=== PATIENT | male | born 1960 | race Two or more races ===

== ENCOUNTER 2022-01-20 08:43 | Emergency (ER) | payer MEDICAID, OTHER ==
[~2022-01-20] VITALS: Ht 172.7 cm; Wt 84.8 kg
[2022-01-20 09:44] LABS: Basophils # (auto) 0 10 ^3/uL (0-0.2); Basophils % (auto) 0.7 % (0.0-2.0); Eosinophils # (auto) 0.3 10 ^3/uL (0-0.8); Eosinophils % (auto) 4.2 % (0.0-7.0); Hematocrit 43.4 % (41.0-53.0); Hemoglobin 14.5 g/dL (13.5-17.5); Lymphocytes # (auto) 1.1 10 ^3/uL (0.4-5.4); Lymphocytes % (auto) 18.4 % (10.0-50.0); Mean Corpuscular Hemoglobin 30.3 pg (28.0-32.0); Mean Corpuscular Hgb Conc. 33.4 g/dL (32.0-36.0); Mean Corpuscular Volume 90.9 fL (80.0-100.0); Monocytes # (auto) 0.4 10 ^3/uL (0-1.3); Monocytes % (auto) 6.8 % (0.0-12.0); Neutrophils # (auto) 4.2 10 ^3/uL (1.6-8.6); Neutrophils % (auto) 69.9 % (37.0-80.0); Nucleated Red Blood Cells % 0.1 %; Red Blood Cells 4.78 10^6/uL (4.5-5.90); Red Cell Distribution Width 15.6 % (11.8-14.3)
[2022-01-20 09:55] LABS: Albumin 3.2 g/dL (3.4-5.0); Calcium 8.7 mg/dL (8.5-10.1); Potassium 3.4 mmol/L (3.5-5.1)
[2022-01-20 09:56] LABS: INR 1.09 (0.9-1.15); Partial Thromboplastin Time 26.2 sec (23.6-33.0)
[2022-01-20 09:58] LABS: BUN/Creatinine Ratio 8.2; Bilirubin, Total 0.6 mg/dL (0.2-1.0); Total Protein 7.5 g/dL (6.4-8.2)
[2022-01-20 11:00] VITALS: BP 122/88
== END 2022-01-20 11:36 | disposition home or self-care (01) ==
LOC: EDBD 08:43 → ER 08:43
DX: T84.210A Breakdown (mechanical) of internal fixation device of bones of hand and fingers, initial encounter (principal); I12.0 Hypertensive chronic kidney disease with stage 5 chronic kidney disease or end stage renal disease; N18.6 End stage renal disease; Z87.891 Personal history of nicotine dependence
CPT/HCPCS: 36415; 71045; 80053; 85025; 85610; 85730; 93005

== ENCOUNTER 2023-05-30 02:09 | Inpatient (IN) | payer MEDICARE, MEDICAID ==
[~2023-05-30] VITALS: Ht 172.7 cm; Wt 90.1 kg
[2023-05-30 03:19] LABS: Red Cell Distribution Width 19.2 % (11.8-14.3); White Blood Cell 12.3 10^3/uL (4.4-10.8)
[2023-05-30 03:21] LABS: Hematocrit 40.4 % (41.0-53.0); Hemoglobin 12.7 g/dL (13.5-17.5); Mean Corpuscular Hgb Conc. 31.5 g/dL (32.0-36.0); Red Blood Cells 5.31 10^6/uL (4.5-5.90)
[2023-05-30 03:28] LABS: Basophils % (manual) 0 (0.0-2.0); Blast Cells 0; Eosinophils % (manual) 0 (0-7); Metamyelocytes % 0; Myelocytes % 0; Promyelocytes % 0; Reactive Lymphocytes 0
[2023-05-30] MEDS ORDERED: cefTRIAXone SOD 1,000 MG VL IV ONE (03:30)
[2023-05-30 03:38] LABS: Alanine Aminotransferase 10 U/L (7-40); Alkaline Phosphatase 118 U/L (46-116); Anion Gap 11 (5-15); Aspartate Aminotransferase < 8 U/L (13-40); BUN/Creatinine Ratio 6.5 (10.0-20.0); Blood Urea Nitrogen 28 mg/dL (9-23); Calcium 9.1 mg/dL (8.7-10.4); Carbon Dioxide 21 mmol/L (20-30); Chloride 105 mmol/L (98-107); Glucose 91 mg/dL (74-106); Potassium 3.7 mmol/L (3.5-5.1); Sodium 137 mmol/L (136-145)
[2023-05-30 03:39] LABS: Bilirubin, Total 1.1 mg/dL (0.2-1.0); Total Protein 6.8 g/dL (5.7-8.2)
[2023-05-30 03:42] LABS: Band Neutrophils % (manual) 7; Lymphocytes % (manual) 8 (10.0-50.0); Monocytes % (manual) 4 (0-12)
[2023-05-30 03:43] LABS: Platelet Estimate Adequate
[2023-05-30 04:12] LABS: Urine Bacteria NONE SEEN /hpf (None Seen); Urine Blood 3+ /uL (Negative); Urine Clarity HAZY (Clear); Urine Color Yellow (Yellow); Urine Protein, UAD 1+ (Negative); Urine Specific Gravity 1.014 (1.001-1.035); Urine Urobilinogen Normal (Negative); Urine WBC 162 /hpf (0 - 3); Urine pH 7.5 (5.0-8.0)
[2023-05-30 04:30] VITALS: RESP 20; O2SAT 92
[2023-05-30] MEDS ORDERED: cefTRIAXone 1GM/50ML D5W 50 ML IV ONE (04:30)
[2023-05-30] MEDS ORDERED: ACETAMINOPHEN 325 MG TAB PO PRN (18:15)
[2023-05-30] MEDS ORDERED: ONDANSETRON HCL 4 MG/2 ML VIAL IV PRN (18:15)
[2023-05-30] MEDS ORDERED: DICYCLOMINE HCL (10MG/ML) 2 ML AMPULE IM ONE (19:00)
[2023-05-30 21:11] VITALS: PULSE 9; RESP 19; O2SAT 95
[2023-05-30] MEDS ORDERED: METO-158 PO (23:47)
[2023-05-31 05:00] VITALS: BP 99/70; PULSE 94; RESP 20; TEMP 98.2; O2SAT 100
[2023-05-31 05:43] LABS: Basophils # (auto) 0 10 ^3/uL (0-0.2); Basophils % (auto) 0.3 % (0.0-2.0); Eosinophils # (auto) 0.1 10 ^3/uL (0-0.8); Eosinophils % (auto) 0.7 % (0.0-7.0); Hemoglobin 13.1 g/dL (13.5-17.5); Mean Corpuscular Hemoglobin 24.3 pg (28.0-32.0); Monocytes # (auto) 0.6 10 ^3/uL (0-1.3)
[2023-05-31 05:45] LABS: Hematocrit 41.1 % (41.0-53.0); Lymphocytes # (auto) 0.6 10 ^3/uL (0.4-5.4); Lymphocytes % (auto) 7.6 % (10.0-50.0); Mean Corpuscular Hgb Conc. 31.8 g/dL (32.0-36.0); Mean Corpuscular Volume 76.6 fL (80.0-100.0); Monocytes % (auto) 7.4 % (0.0-12.0); Neutrophils # (auto) 6.6 10 ^3/uL (1.6-8.6); Red Blood Cells 5.37 10^6/uL (4.5-5.90); Red Cell Distribution Width 19.7 % (11.8-14.3); White Blood Cell 7.9 10^3/uL (4.4-10.8)
[2023-05-31 05:46] LABS: Alanine Aminotransferase 12 U/L (7-40); Alkaline Phosphatase 102 U/L (46-116); Anion Gap 9 (5-15); Calcium 8.8 mg/dL (8.7-10.4); Carbon Dioxide 22 mmol/L (20-30); Chloride 103 mmol/L (98-107); Glucose 88 mg/dL (74-106); Potassium 3.9 mmol/L (3.5-5.1); Sodium 134 mmol/L (136-145)
[2023-05-31 05:47] LABS: BUN/Creatinine Ratio 6.9 (10.0-20.0); Blood Urea Nitrogen 33 mg/dL (9-23)
[2023-05-31 05:48] LABS: Aspartate Aminotransferase 12 U/L (13-40)
[2023-05-31] MEDS ORDERED: LEVO50TA7 PO ×2 (05:48→15:43)
[2023-05-31] MEDS ORDERED: APIX2.5T PO ×2 (05:48→15:43)
[2023-05-31] MEDS ORDERED: LOSA50TA46 PO ×2 (05:48→15:43)
[2023-05-31] MEDS ORDERED: CLOP75TA28 PO (05:48)
[2023-05-31 05:49] LABS: Bilirubin, Total 0.7 mg/dL (0.2-1.0); Total Protein 6.9 g/dL (5.7-8.2)
[2023-05-31] MEDS ORDERED: SODIUM CHL 0.9% 1000 ML BAG XX ONE (07:00)
[2023-05-31 08:00] VITALS: PULSE 106
[2023-05-31 08:42] LABS: Hepatitis B Surface Antigen Negative (Negative)
[2023-05-31 09:00] VITALS: BP 117/75; PULSE 104; RESP 18; TEMP 99.7; O2SAT 95
[2023-05-31] MEDS: LEVOTHYROXINE SODIUM 50 MCG TAB PO SCH (09:13)
[2023-05-31] MEDS: cefTRIAXone 1GM/50ML D5W 50 ML IV SCH (09:13)
[2023-05-31] MEDS: CLOPIDOGREL BISULFATE 75 MG TAB PO SCH (09:14)
[2023-05-31] MEDS: APIXABAN 2.5 MG TAB PO SCH ×2 (09:28→22:30)
[2023-05-31 09:35] LABS: INR 1.11 (0.9-1.15); Partial Thromboplastin Time 28.6 SEC (24.5-34.5); Prothrombin Time 11.6 sec (9.3-11.8)
[2023-05-31 11:39] LABS: Hepatitis B Surface Antibody Negative (Negative)
[2023-05-31] MEDS ORDERED: CLOP75TA70 PO (15:43)
[2023-05-31] MEDS ORDERED: METO-158 PO (15:43)
[2023-05-31] MEDS ORDERED: PANT40TA2 PO (15:43)
[2023-05-31 17:00] VITALS: BP 105/69; PULSE 86; RESP 18; TEMP 99.1; O2SAT 97
[2023-05-31 20:00] VITALS: BP 118/77; PULSE 82; PULSE 86; RESP 20; TEMP 98.5; O2SAT 97
[2023-05-31 22:00] VITALS: BP 118/77; PULSE 86; RESP 20; TEMP 98.5; O2SAT 97
[2023-06-01] VITALS (7 sets, daily range): BP systolic 113–126; BP diastolic 68–83; PULSE 57–94; RESP 12–20; TEMP 97.6–98.6; O2SAT 95–99
[2023-06-01 05:17] LABS: Basophils # (auto) 0 10 ^3/uL (0-0.2); Basophils % (auto) 0.5 % (0.0-2.0); Eosinophils # (auto) 0.2 10 ^3/uL (0-0.8); Hematocrit 39.1 % (41.0-53.0); Lymphocytes # (auto) 0.7 10 ^3/uL (0.4-5.4); Monocytes # (auto) 0.5 10 ^3/uL (0-1.3); Nucleated Red Blood Cells % 0.1 %; White Blood Cell 5.7 10^3/uL (4.4-10.8)
[2023-06-01 05:19] LABS: Hemoglobin 12.6 g/dL (13.5-17.5); Lymphocytes % (auto) 12.8 % (10.0-50.0); Mean Corpuscular Hemoglobin 24.4 pg (28.0-32.0); Mean Corpuscular Hgb Conc. 32.2 g/dL (32.0-36.0); Mean Corpuscular Volume 75.7 fL (80.0-100.0); Monocytes % (auto) 9.3 % (0.0-12.0); Neutrophils # (auto) 4.3 10 ^3/uL (1.6-8.6); Neutrophils % (auto) 74.4 % (37.0-80.0); Red Blood Cells 5.17 10^6/uL (4.5-5.90); Red Cell Distribution Width 19.7 % (11.8-14.3)
[2023-06-01 05:26] LABS: Chloride 106 mmol/L (98-107); Sodium 135 mmol/L (136-145)
[2023-06-01 05:27] LABS: Anion Gap 9 (5-15); Carbon Dioxide 20 mmol/L (20-30)
[2023-06-01 05:28] LABS: Calcium 8.8 mg/dL (8.5-10.1)
[2023-06-01 05:32] LABS: BUN/Creatinine Ratio 7.6 (10.0-20.0); Blood Urea Nitrogen 33 mg/dL (9-23); Glucose 93 mg/dL (74-106)
[2023-06-01] MEDS: LEVOTHYROXINE SODIUM 50 MCG TAB PO SCH (05:52)
[2023-06-01] MEDS: CLOPIDOGREL BISULFATE 75 MG TAB PO SCH (08:59)
[2023-06-01] MEDS: APIXABAN 2.5 MG TAB PO SCH ×2 (08:59→21:29)
[2023-06-01] MEDS: cefTRIAXone 1GM/50ML D5W 50 ML IV SCH (09:00)
[2023-06-02 05:00] VITALS: BP 121/71; PULSE 85; RESP 16; TEMP 98; O2SAT 96
[2023-06-02 05:51] LABS: Basophils # (auto) 0 10 ^3/uL (0-0.2); Eosinophils # (auto) 0.2 10 ^3/uL (0-0.8); Lymphocytes # (auto) 0.8 10 ^3/uL (0.4-5.4); Monocytes # (auto) 0.5 10 ^3/uL (0-1.3); Neutrophils # (auto) 3.4 10 ^3/uL (1.6-8.6); Nucleated Red Blood Cells % 0.4 %
[2023-06-02] MEDS: LEVOTHYROXINE SODIUM 50 MCG TAB PO SCH (05:55)
[2023-06-02 05:59] LABS: Basophils % (auto) 0.8 % (0.0-2.0); Eosinophils % (auto) 3.3 % (0.0-7.0); Hematocrit 40.5 % (41.0-53.0); Hemoglobin 13.1 g/dL (13.5-17.5); Lymphocytes % (auto) 16.3 % (10.0-50.0); Mean Corpuscular Hemoglobin 24.5 pg (28.0-32.0); Mean Corpuscular Hgb Conc. 32.3 g/dL (32.0-36.0); Mean Corpuscular Volume 75.7 fL (80.0-100.0); Monocytes % (auto) 10.9 % (0.0-12.0); Neutrophils % (auto) 68.7 % (37.0-80.0); Red Blood Cells 5.35 10^6/uL (4.5-5.90)
[2023-06-02 06:08] LABS: Anion Gap 9 (5-15); Carbon Dioxide 25 mmol/L (20-30); Chloride 103 mmol/L (98-107); Potassium 3.9 mmol/L (3.5-5.1); Sodium 137 mmol/L (136-145)
[2023-06-02 06:09] LABS: Calcium 8.8 mg/dL (8.7-10.4)
[2023-06-02 06:14] LABS: BUN/Creatinine Ratio 6.3 (10.0-20.0); Blood Urea Nitrogen 19 mg/dL (9-23); Glucose 95 mg/dL (74-106)
[2023-06-02 07:40] VITALS: PULSE 79
[2023-06-02] MEDS: APIXABAN 2.5 MG TAB PO SCH (08:27)
[2023-06-02] MEDS: CLOPIDOGREL BISULFATE 75 MG TAB PO SCH (08:27)
[2023-06-02] MEDS: cefTRIAXone 1GM/50ML D5W 50 ML IV SCH (08:28)
[2023-06-02 09:00] VITALS: BP 109/82; PULSE 90; RESP 16; TEMP 97.8; O2SAT 98
[2023-06-02 11:02] VITALS: BP 109/82; PULSE 90; RESP 16; O2SAT 98
[2023-06-02] MEDS ORDERED: CEPH500C PO (11:08)
== END 2023-06-02 11:55 | disposition home or self-care (01) | DRG 871 ==
LOC: EDBD 02:09 → ER 02:09 → TELE 09:33 → TELE-EAST 23:20
PROVIDERS: ADMIT Internal Medicine Geriatric Medicine; ATTEND Student in an Organized Health Care Education/Training Program
PROC: 5A1D70Z Performance of Urinary Filtration, Intermittent, Less than 6 Hours Per Day (ICD-10-PCS; principal; 2023-06-01)
DX: A41.9 Sepsis, unspecified organism (principal); N18.6 End stage renal disease; N39.0 Urinary tract infection, site not specified; I12.0 Hypertensive chronic kidney disease with stage 5 chronic kidney disease or end stage renal disease; D64.9 Anemia, unspecified; I25.10 Atherosclerotic heart disease of native coronary artery without angina pectoris; B96.1 Klebsiella pneumoniae [K. pneumoniae] as the cause of diseases classified elsewhere; N40.1 Benign prostatic hyperplasia with lower urinary tract symptoms; R33.8 Other retention of urine; E03.9 Hypothyroidism, unspecified; Z87.891 Personal history of nicotine dependence; Z99.2 Dependence on renal dialysis; Z83.3 Family history of diabetes mellitus; Z86.718 Personal history of other venous thrombosis and embolism
CPT/HCPCS: 36415; 71045; 80048; 80053; 81001; 83605; 83735; 85007; 85025; 85027; 85610; 85730; 86706; 87040; 87077; 87086; 87186; 87340; 90935; 96372; 99291; G0378; J0696